=== PATIENT | female | born 1980 | race Caucasian/White ===

== ENCOUNTER 2025-02-11 18:10 | Emergency (ER) | payer BC ==
[2025-02-11 22:02] LABS: #Basophils 0.04 10x3/uL (0.0-0.2); #Eosinophils 0.22 10x3/uL (0.0-0.7); #Monocytes 0.85 10x3/uL (0.11-0.59); #Neutrophils 6.31 10x3/uL (1.40-6.50); %Basophils 0.4 % (0.0-1.0); %Eosinophils 2.1 % (0.0-10.0); %Lymphocytes 28.3 % (21.0-51.0); %Monocytes 8.2 % (0.0-10.0); %Neutrophils 60.6 % (42.0-75.0); Hematocrit 40.5 % (36.0-47.0); Hemoglobin 14.3 g/dL (12.0-16.0); Mean Corpuscular Hemoglobin 31.8 pg (27.0-31.0); Mean Corpuscular Volume 90.0 fL (78.0-98.0); Platelet Count 294 10x3/uL (130-400); Red Blood Cell (RBC) Count 4.50 mill/uL (4.20-5.40); White Blood Cell (WBC) Count 10.41 10x3/uL (4.8-10.8)
[2025-02-11 22:32] LABS: ALT (SGPT) 40 U/L (Less than 34); AST (SGOT) 28 U/L (11-34); Albumin 4.2 g/dL (3.1-4.5); Alkaline Phosphatase 95 U/L (40-110); Anion Gap 14 mmol/L (10-20); BUN (Urea Nitrogen) 14 mg/dL (7.0-18.7); Bilirubin, Total 0.3 mg/dL (0.3-1.2); Calc. Creatinine Clearance 0 mL/min (70-130); Calcium 9.0 mg/dL (7.8-10.44); Carbon Dioxide 25 mmol/L (22-29); Chloride 105 mmol/L (98-107); Globulin 2.6 g/dL (2.4-3.5); Glucose 101 mg/dL (70-105); Potassium 3.6 mmol/L (3.5-5.1); Sodium 140 mmol/L (136-145)
== END 2025-02-11 23:27 | disposition home or self-care (01) ==
LOC: ERS 18:10
DX: R07.89 Other chest pain (principal); F17.210 Nicotine dependence, cigarettes, uncomplicated
CPT/HCPCS: 71045; 80053; 84484; 85025; 93005